=== PATIENT | female | born 2000 | race Two or more races ===

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

== ENCOUNTER 2019-02-22 19:36 | Emergency (ER) | payer MEDICAID, OTHER ==
[~2019-02-22] VITALS: Ht 154.9 cm; Wt 49.0 kg
[2019-02-22 19:46] VITALS: BP 118/72
== END 2019-02-22 20:30 | disposition home or self-care (01) ==
LOC: ER 19:36
DX: M54.2 Cervicalgia (principal); M54.5 Low back pain; J45.909 Unspecified asthma, uncomplicated; V49.49XA Driver injured in collision with other motor vehicles in traffic accident, initial encounter; Y93.89 Activity, other specified; Y92.488 Other paved roadways as the place of occurrence of the external cause; Y99.8 Other external cause status

== ENCOUNTER 2019-08-07 10:55 | Emergency (ER) | payer BC, MEDICAID ==
[~2019-08-07] VITALS: Ht 152.4 cm; Wt 47.6 kg
[2019-08-07 11:10] VITALS: BP 134/77
== END 2019-08-07 12:13 | disposition home or self-care (01) ==
LOC: ER 10:59
DX: L30.9 Dermatitis, unspecified (principal); R21 Rash and other nonspecific skin eruption; J45.909 Unspecified asthma, uncomplicated

== ENCOUNTER 2021-02-28 21:06 | Emergency (ER) | payer MEDICAID ==
[~2021-02-28] VITALS: Ht 154.9 cm; Wt 63.5 kg
--- NOTE | 2021-02-28 22:43 | NUR ---
PT BIB MOTHER, ROOM 16. C/O SEVERE HEADACHES. POUNDING IN THE TEMPORAL AREA, PAIN AROUND THE EYES. PT OFTEN TAKES IBUPROFEN OTC TO RELIEVE PAIN, LAST TAKEN AROUN 1800, INEEFECTIVE PER PT. PT HAS HAD ON AND OFF HEADACHE MIGRAINES FOR THE PAST TWO YEARS. HAS NOT FOLLOWED UP WITH PRIMARY MD IN 2 YEARS. EDUCATED IMPORTANCE OF REGULAR VISITS. PT DENIES ANY TRIGGERS/AURAS. PT ON MONITOR. VSS.
--- NOTE | 2021-02-28 23:08 | NUR ---
COVID SWAB COLLECTED AND SENT TO LAB
[2021-02-28 23:13] LABS: BASOPHILS # (AUTO) 0.1 K/uL (0.0-0.2); BASOPHILS % (AUTO) 1.3 % (0.0-2.0); EOSINOPHILS % (AUTO) 1.7 % (0.0-6.0); HEMATOCRIT 40 % (33-45); HEMOGLOBIN 13.8 g/dL (11.5-14.8); LYMPHOCYTES # (AUTO) 1.5 K/uL (0.8-4.8); LYMPHOCYTES % (AUTO) 28.3 % (20.0-44.0); MEAN CORPUSCULAR HGB CONC 34 g/dl (31.0-36.0); MEAN CORPUSCULAR VOLUME 89 fL (82-100); MONOCYTES # (AUTO) 0.6 K/uL (0.1-1.30); MONOCYTES % (AUTO) 12.1 % (2.0-12.0); NEUTROPHILS % (AUTO) 56.6 % (43.0-81.0); PLATELET COUNT (AUTO) 274 K/uL (150-450); RED BLOOD CELL COUNT(AUTO) 4.48 MIL/uL (4.0-5.2); WHITE BLOOD COUNT (AUTO) 5.4 K/uL (4.3-11.0)
[2021-02-28 23:30] LABS: CALCIUM, SERUM 8.6 mg/dL (8.5-10.1); CREATININE 0.6 mg/dL (0.6-1.3); POTASSIUM 4.2 mmol/L (3.5-5.1)
--- NOTE | 2021-02-28 23:35 | NUR ---
pt taken to CT
--- NOTE | 2021-03-01 00:20 | NUR ---
pt resting with lights off
[2021-03-01] MEDS ORDERED: IBUP-1955 PO (00:50)
--- NOTE | 2021-03-01 01:04 | NUR ---
Patient discharged to home in stable condition. Written and verbal after care instructions given. Patient verbalizes understanding of instruction. pt ambulatory with a steady gait. d/c in stable condition.
[2021-03-01 01:06] VITALS: BP 108/73
== END 2021-03-01 01:07 | disposition home or self-care (01) ==
LOC: ER 21:11
DX: R51.9 Headache, unspecified (principal); J06.9 Acute upper respiratory infection, unspecified; Z20.822 Contact with and (suspected) exposure to COVID-19; R04.0 Epistaxis
CPT/HCPCS: 36415; 70450; 80048; 84702; 85025; 85730; 87426; 99284; C9803 ×2; U0003